=== PATIENT | female | born 1995 | race Caucasian/White ===

== ENCOUNTER 2017-12-02 14:15 | Emergency (ER) | payer SELFPAY ==
[~2017-12-02] VITALS: Ht 170.2 cm; Wt 114.1 kg
[~2017-12-02 14:15] MED LIST: ROBITUSSIN AC,T10 ML PO
[2017-12-02 15:30] LABS: APPEARANCE SL.HAZY ((CLEAR)); BILIRUBIN NEGATIVE; BLOOD LARGE; COLOR YELLOW ((YELLOW)); GLUCOSE (STRIP) NEGATIVE; KETONES NEGATIVE; LEUKOCYTES NEGATIVE; NITRITE NEGATIVE; PROTEIN (STRIP) 30; SPECIFIC GRAVITY 1.012 (1.000-1.030); UROBILINOGEN 0.2 MG/DL (0.2-1.0)
[2017-12-02] MEDS ORDERED: FLEXERIL5 MG PO (15:33)
[2017-12-02 15:36] LABS: BACTERIA RARE /HPF; EPITHELIAL CELLS 1+ /HPF; MUCUS TRACE /LPF; RED BLOOD CELLS 0-5 /HPF (0-5); UCUL ADDED? NO; WHITE BLOOD CELLS 0-5 /HPF (0-5)
[2017-12-02 16:08] LABS: HEMATOCRIT 41.9 % (36.0-46.0); MCH 27.6 PG (29.0-34.0); MCHC 33.4 G/DL (30.0-36.0); MCV 82.5 FL (83-99); PLATELET COUNT 353 K/uL (156-360); RBC DIS.WIDTH-CV 12.5 % (11.8-14.6); RBC DIS.WIDTH-SD 38.1 % (39-53); RED BLOOD COUNT 5.08 M/uL (3.80-5.20); WHITE BLOOD COUNT 9.1 K/uL (4.1-10.2)
[2017-12-02 16:20] LABS: CHLORIDE 105 mEq/L (99-109); POTASSIUM 4.2 mEq/L (3.7-5.4); SODIUM 140 mEq/L (136-147)
[2017-12-02 16:22] LABS: GLUCOSE 93 mg/dL (70-99); TOTAL PROTEIN 6.7 g/dL (6.4-8.3)
[2017-12-02 16:24] LABS: TOTAL BILIRUBIN 0.5 mg/dL (0.0-1.0)
[2017-12-02 16:25] LABS: ALKALINE PHOSPHATASE 65 IU/L (3-129)
[2017-12-02 16:26] LABS: CREATININE 0.8 mg/dL (0.6-1.3); GFR ESTIMATE (CALCULATED) > 59 mL/min/
[2017-12-02 16:27] LABS: AST (GOT) 27 IU/L (2-34); UREA NITROGEN (BUN) 12 mg/dL (9-23)
[2017-12-02 16:29] LABS: ALT (GPT) 32 IU/L (3-49); LIPASE 17 U/L (1.0-51.0)
[2017-12-02] MEDS ORDERED: NAPROSYN500 MG PO (18:32)
[2017-12-02] MEDS ORDERED: FLEXERIL10 MG PO (18:32)
[2017-12-02 18:41] VITALS: BP 151/86
== END 2017-12-02 18:42 | disposition home or self-care (01) ==
LOC: EME 14:15
PROVIDERS: Physician Assistant
DX: M54.5 Low back pain (principal); R31.9 Hematuria, unspecified
CPT/HCPCS: 74176; 80053; 81003; 81025; 83690; 85027; 99281; 99284; J1885